=== PATIENT | male | born 1945 | race Caucasian/White ===

== ENCOUNTER 2018-08-15 12:21 | Outpatient (REF) | payer BC, MEDICARE, SELFPAY ==
[2018-08-15 21:01] LABS: Cholesterol 251 mg/dL (50-200); HDL Cholesterol 58 mg/dL (40-60); LDL CHOLESTEROL 162 mg/dL (<100); Triglyceride 113 mg/dL (30-150)
[2018-08-18 09:47] LABS: PSA, Screening 4.8 ng/ml (0-6.5)
== END 2018-08-15 12:41 ==
LOC: NCHCN 12:21
PROVIDERS: PCP Nurse Practitioner Family; Visit Provider Internal Medicine
DX: N40.0 Benign prostatic hyperplasia without lower urinary tract symptoms (principal); Z12.5 Encounter for screening for malignant neoplasm of prostate; Z13.6 Encounter for screening for cardiovascular disorders; E78.89 Other lipoprotein metabolism disorders
CPT/HCPCS: 80061; 83721; 84153

== ENCOUNTER 2019-08-17 11:55 | Outpatient (REF) | payer BC, MEDICARE, SELFPAY ==
[2019-08-17 22:03] LABS: BUN 18 mg/dL (7-18); CREATININE 0.83 mg/dL (0.70-1.30); Calcium 9.1 mg/dL (8.5-10.1); Calculated LDL 140 mg/dL; Chloride 104 mmol/L (98-107); Cholesterol 210 mg/dL (<200); Glucose 93 mg/dL (74-106); HDL Cholesterol 58 mg/dL (40-60); Potassium 4.2 mmol/L (3.5-5.1); Sodium 141 mmol/L (136-145); Triglyceride 61 mg/dL (<150)
[2019-08-21 10:20] LABS: Testosterone, Free 6.54 ng/dL (3.28-12.2); Testosterone, Total 654 ng/dL (240-950)
== END 2019-08-17 12:15 ==
LOC: NCHCN 11:55
PROVIDERS: PCP Nurse Practitioner Family; Visit Provider Internal Medicine
DX: Z00.00 Encounter for general adult medical examination without abnormal findings (principal); E78.70 Disorder of bile acid and cholesterol metabolism, unspecified; E29.1 Testicular hypofunction; N40.0 Benign prostatic hyperplasia without lower urinary tract symptoms
CPT/HCPCS: 80048; 80061; 84402; 84403

== ENCOUNTER 2020-02-08 08:30 | Outpatient (REF) | payer BC, SELFPAY ==
[2020-02-08 21:39] LABS: Calculated LDL 151 mg/dL (<100); Cholesterol 226 mg/dL (<200); HDL Cholesterol 57 mg/dL (40-60); Triglyceride 90 mg/dL (<150)
== END 2020-02-08 08:50 ==
LOC: NCHCN 08:30
PROVIDERS: PCP Nurse Practitioner Family; Visit Provider Internal Medicine
DX: E78.70 Disorder of bile acid and cholesterol metabolism, unspecified (principal)
CPT/HCPCS: 80061

== ENCOUNTER 2020-08-15 08:06 | Outpatient (REF) | payer MEDICARE, SELFPAY ==
[2020-08-15 22:12] LABS: ALT 33 U/L (16-63); AST 29 U/L (15-37); Albumin 4.1 g/dL (3.4-5.0); Alkaline Phosphatase 43 U/L (46-116); Anion Gap 10.6 mmol/L (3-11); BUN 15 mg/dL (7-18); Bilirubin, Total 0.9 mg/dL (0.2-1.0); CO2 26.4 mmol/L (21.0-32.0); CREATININE 1.03 mg/dL (0.70-1.30); Calcium 9.1 mg/dL (8.5-10.1); Calculated LDL 110 mg/dL (<100); Chloride 103 mmol/L (98-107); Cholesterol 186 mg/dL (<200); Glucose 99 mg/dL (74-106); HDL Cholesterol 62 mg/dL (40-60); Sodium 140 mmol/L (136-145); Total Protein 6.9 g/dL (6.4-8.2); Triglyceride 73 mg/dL (<150)
[2020-08-16 17:42] LABS: PSA, Screening 2.7 ng/mL (0.0-6.5)
== END 2020-08-15 08:26 ==
LOC: NCHCN 08:06
PROVIDERS: PCP Nurse Practitioner Family; Visit Provider Internal Medicine
DX: E78.70 Disorder of bile acid and cholesterol metabolism, unspecified (principal); Z12.5 Encounter for screening for malignant neoplasm of prostate; N40.0 Benign prostatic hyperplasia without lower urinary tract symptoms
CPT/HCPCS: 80053; 80061; 84153

== ENCOUNTER 2021-08-18 08:28 | Outpatient (REF) | payer MEDICARE, SELFPAY ==
[2021-08-18 15:01] LABS: Calculated LDL 79 mg/dL (<100); Cholesterol 155 mg/dL (<200); Glucose 97 mg/dL (74-106); HDL Cholesterol 66 mg/dL (40-60); Triglyceride 51 mg/dL (<150)
== END 2021-08-18 08:29 | disposition home or self-care (01) ==
LOC: NCHCN 08:28
PROVIDERS: PCP Nurse Practitioner Family; Visit Provider Internal Medicine
DX: Z13.1 Encounter for screening for diabetes mellitus (principal); E78.70 Disorder of bile acid and cholesterol metabolism, unspecified
CPT/HCPCS: 80061; 82947

== ENCOUNTER 2022-08-15 14:54 | Outpatient (REF) | payer MEDICARE, SELFPAY ==
[2022-08-15 14:42] LABS: Glucose 113 mg/dL (74-106)
[2022-08-15 23:19] LABS: PSA, Screening 3.5 ng/mL (<=6.5)
== END 2022-08-15 14:55 | disposition home or self-care (01) ==
LOC: NCHCN 14:54
PROVIDERS: PCP Nurse Practitioner Family; Visit Provider Internal Medicine
DX: R73.09 Other abnormal glucose (principal); E29.1 Testicular hypofunction; Z12.5 Encounter for screening for malignant neoplasm of prostate
CPT/HCPCS: 82947; 84153

== ENCOUNTER 2022-09-27 15:18 | Outpatient (REF) | payer MEDICARE, SELFPAY ==
[2022-09-27 21:02] LABS: HCT 39.1 % (40.0-50.0); HGB 13.8 g/dL (13.5-17.5); MCH 31.4 pg (27.0-33.0); MCHC 35.3 % (32.0-36.0); MCV 89 fL (80-95); MPV 9.1 fL (8.0-11.0); Platelet Count 252 10^3/uL (130-400); RBC 4.39 10^6/uL (4.36-5.78); RDW 12.3 % (11.8-14.1); RDW-SD 40.3 fL; WBC 6.16 10^3/uL (4.4-10.8)
[2022-09-27 21:30] LABS: ALT 24 U/L (16-63); AST 26 U/L (15-37); Albumin 3.8 g/dL (3.4-5.0); Alkaline Phosphatase 42 U/L (46-116); Anion Gap 4.8 mmol/L (3-11); BUN 16 mg/dL (7-18); Bilirubin, Total 0.5 mg/dL (0.2-1.0); CO2 28.2 mmol/L (21.0-32.0); CREATININE 0.9 mg/dL (0.70-1.30); Calcium 9.2 mg/dL (8.5-10.1); Chloride 102 mmol/L (98-107); Estimated GFR 89.07 (mL/min/1.73m2); Glucose 158 mg/dL (74-106); Magnesium 2.3 mg/dL (1.8-2.4); Potassium 4.2 mmol/L (3.5-5.1); Sodium 135 mmol/L (136-145); TSH (W/Ref FT4) 1.45 uIU/mL (0.36-3.74); Total Protein 6.8 g/dL (6.4-8.2)
== END 2022-09-27 15:19 | disposition home or self-care (01) ==
LOC: NCHCN 15:18
PROVIDERS: PCP Nurse Practitioner Family; Visit Provider Family Medicine
DX: R00.2 Palpitations (principal); E78.5 Hyperlipidemia, unspecified
CPT/HCPCS: 80053; 85027; 83735; 84443

== ENCOUNTER 2023-02-27 14:50 | Outpatient (REF) | payer MEDICARE, SELFPAY ==
[2023-02-27 15:51] LABS: Glucose 116 mg/dL (74-106)
[2023-02-27 15:53] LABS: Hemoglobin A1C 5.8 % (<5.7)
== END 2023-02-27 14:51 | disposition home or self-care (01) ==
LOC: NCHCN 14:50
PROVIDERS: PCP Nurse Practitioner Family; Visit Provider Internal Medicine
DX: R73.03 Prediabetes (principal); R73.9 Hyperglycemia, unspecified
CPT/HCPCS: 82947; 83036

== ENCOUNTER 2023-04-19 12:45 | Outpatient (REF) | payer MEDICARE, SELFPAY ==
--- NOTE | 2023-04-19 11:25 | SKI_PTH ---
PATIENT: Israel Plasencia LOC: N U#:[id number] AGE/SX: 77/M ROOM: RE04/19/[address]: Lyndsay Christianson : 1945 BED: DIS: 04/19/2023 SPEC #: [id number] RECD: 04/22/23 12:11 STATUS: RYAN RE #: [id number] WHITNEY: 04/19/23 11:[address]: Lyndsay Christianson DEPT: Surgical Specimen RECD BY: Kika Cabrera ENTERED: 04/22/23 12:12 SP TYPE: PORFIRIO TO DR: Tamica Grigsby Tissues: 1 - SKIN BIOPSY(SHAVE/PUNCH) Procedures: SKIN LEVEL 4 Comments: [id number]
== END 2023-04-19 12:46 | disposition home or self-care (01) ==
LOC: LBN 12:45
PROVIDERS: PCP Nurse Practitioner Family; Visit Provider Internal Medicine
DX: C44.619 Basal cell carcinoma of skin of left upper limb, including shoulder (principal)
CPT/HCPCS: 88305

== ENCOUNTER 2023-09-13 12:18 | Outpatient (REF) | payer MEDICARE, SELFPAY ==
[2023-09-13 16:08] LABS: ALT 32 U/L (16-63); AST 27 U/L (15-37); Albumin 3.6 g/dL (3.4-5.0); Alkaline Phosphatase 62 U/L (46-116); Anion Gap 5.8 mmol/L (3-11); BUN 15 mg/dL (7-18); Bilirubin, Total 0.8 mg/dL (0.2-1.0); CO2 28.2 mmol/L (21.0-32.0); Calcium 9.5 mg/dL (8.5-10.1); Chloride 99 mmol/L (98-107); Glucose 110 mg/dL (74-106); Potassium 4.9 mmol/L (3.5-5.1); Sodium 133 mmol/L (136-145); Total Protein 7.4 g/dL (6.4-8.2)
[2023-09-13 17:21] LABS: Hemoglobin A1C 5.8 % (<5.7)
== END 2023-09-13 12:19 | disposition home or self-care (01) ==
LOC: NCHCN 12:18
PROVIDERS: PCP Nurse Practitioner Family; Visit Provider Internal Medicine
DX: R73.03 Prediabetes (principal); R79.89 Other specified abnormal findings of blood chemistry; E78.5 Hyperlipidemia, unspecified
CPT/HCPCS: 80053; 83036

== ENCOUNTER 2023-10-16 19:10 | Outpatient (REF) | payer MEDICARE, SELFPAY ==
--- NOTE | 2023-10-16 18:00 | SKI_PTH ---
PATIENT: Israel Plasencia LOC: [facility] U#:[id number] AGE/SX: 78/M ROOM: RE10/16/[address]: Polina Rodriguez : 1945 BED: DIS: 10/16/2023 SPEC #: [id number] RECD: 10/17/23 11:58 STATUS: RYAN RUTLEDGE #: [id number] WHITNEY: 10/16/23 18:[address]: Polina Rodriguez DEPT: Surgical Specimen RECD BY: Kika Cabrera ENTERED: 10/17/23 11:59 SP TYPE: PORFIRIO TO DR: Tamica Grigsby Tissues: 1 - SKIN BIOPSY(SHAVE/PUNCH) Procedures: SKIN LEVEL 4 Comments: [id number]
== END 2023-10-16 19:11 | disposition home or self-care (01) ==
LOC: NCHCN 19:10
PROVIDERS: PCP Nurse Practitioner Family; Visit Provider Nurse Practitioner Family
DX: C44.92 Squamous cell carcinoma of skin, unspecified (principal)
CPT/HCPCS: 88305

== ENCOUNTER 2024-06-08 15:51 | Outpatient (REF) | payer MEDICARE, SELFPAY ==
[2024-06-08 22:02] LABS: HCT 41.2 % (40.0-50.0); HGB 14.2 g/dL (13.5-17.5); MCH 31.6 pg (27.0-33.0); MCHC 34.5 % (32.0-36.0); MCV 92 fL (80-95); MPV 9.4 fL (8.0-11.0); Platelet Count 240 10^3/uL (130-400); RDW 12.1 % (11.8-14.1); RDW-SD 40.7 fL; WBC 6.01 10^3/uL (4.4-10.8)
== END 2024-06-08 15:52 | disposition home or self-care (01) ==
LOC: NCHCN 15:51
PROVIDERS: PCP Nurse Practitioner Family; Visit Provider Internal Medicine
DX: E29.1 Testicular hypofunction (principal)
CPT/HCPCS: 84403; 85027

== ENCOUNTER 2024-09-14 13:19 | Outpatient (REF) | payer MEDICARE, SELFPAY ==
[2024-09-14 14:29] LABS: HCT 45.3 % (40.0-50.0); HGB 15.4 g/dL (13.5-17.5); MCH 31.5 pg (27.0-33.0); MCV 93 fL (80-95); MPV 9.3 fL (8.0-11.0); Platelet Count 227 10^3/uL (130-400); RBC 4.89 10^6/uL (4.36-5.78); RDW 12.2 % (11.8-14.1); RDW-SD 41.5 fL; WBC 4.93 10^3/uL (4.4-10.8)
[2024-09-14 14:38] LABS: Anion Gap 4.8 mmol/L (3-11); BUN 17 mg/dL (7-18); CO2 30.2 mmol/L (21.0-32.0); CREATININE 0.9 mg/dL (0.70-1.30); Calcium 9.8 mg/dL (8.5-10.1); Chloride 102 mmol/L (98-107); Estimated GFR 87.96 (mL/min/1.73m2); Glucose 103 mg/dL (74-106); Potassium 4.6 mmol/L (3.5-5.1); Sodium 137 mmol/L (136-145)
[2024-09-14 14:56] LABS: Hemoglobin A1C 5.7 % (<5.7)
[2024-09-14 22:31] LABS: PSA, Screening 2.9 ng/mL (<=6.5)
== END 2024-09-14 13:20 | disposition home or self-care (01) ==
LOC: NCHCN 13:19
PROVIDERS: PCP Nurse Practitioner Family; Visit Provider Internal Medicine
DX: R73.03 Prediabetes (principal); Z12.5 Encounter for screening for malignant neoplasm of prostate; R00.2 Palpitations
CPT/HCPCS: 80048; 84153; 85027; 83036

== ENCOUNTER 2025-03-10 19:54 | Outpatient (REF) | payer MEDICARE, SELFPAY | END 2025-03-10 19:55 | disposition home or self-care (01) | LOC: NCHCN 19:54 | PROVIDERS: PCP Urology; Referring Provider Urology; Visit Provider Urology | DX: E29.1 Testicular hypofunction (principal) | CPT/HCPCS: 84403; 84146 ==